=== PATIENT | female | born 1975 ===

== ENCOUNTER 2016-11-20 19:37 | Emergency (ER) | payer OTHER ==
[2016-11-20 19:47] VITALS: BMI 30.9
[2016-11-20 19:54] VITALS: RESP 18; TEMP 98.2
[2016-11-20] MEDS ORDERED: Promethazine/Cod 6.25mg-10mg/5ml Syr UD PO STA (20:21)
--- NOTE | 2016-11-20 20:38 | C.PDOC ---
History Of Present Illness 41 y/o female presents to the ED for evaluation of cough which began around 4 days ago. Patient began experiencing pleuritic chest pain today and presents to the ED for further evaluation. Patient took [id number] cough syrup without relief. She denies fever, chills, shortness of breath. Time Seen by Provider: 11/20/16 20:05 Chief Complaint (Nursing): Cough, Cold, Congestion History Per: Patient History/Exam Limitations: no limitations Onset/Duration Of Symptoms: Days Current Symptoms Are (Timing): Still Present Associated Symptoms: Cough. denies: Fever, Chills Ear Symptoms: Bilateral: None Additional History Per: Patient Past Medical History Reviewed: Historical Data, Nursing Documentation, Vital Signs Vital Signs: Last Vital Signs Temp 98.2 F 11/20/16 19:45 Pulse 65 11/20/16 20:44 Resp 18 11/20/16 20:44 BP 138/85 11/20/16 20:44 Pulse Ox 99 11/20/16 20:44 - Medical History PMH: No Chronic Diseases Surgical History: No Surg Hx Family History: States: Unknown Family Hx - Social History Hx Alcohol Use: No Hx Substance Use: No - Immunization History Hx Tetanus Toxoid Vaccination: Yes Hx Influenza Vaccination: Yes Hx Pneumococcal Vaccination: Yes Review Of Systems Constitutional: Negative for: Fever, Chills Cardiovascular: Positive for: Chest Pain (pleuritic ) Respiratory: Positive for: Cough. Negative for: Shortness of Breath Physical Exam - Physical Exam Appears: Non-toxic, No Acute Distress Skin: Normal Color, Warm, Dry Head: Atraumatic Eye(s): bilateral: Normal Inspection Ear(s): Bilateral: Normal Nose: Other (+congestion ) Oral Mucosa: Moist Neck: Normal ROM, Supple Chest: Symmetrical, No Deformity, No Tenderness Cardiovascular: Rhythm Regular, No Murmur Respiratory: Normal Breath Sounds, No Rales, No Rhonchi, No Wheezing Back: Normal Inspection, No Vertebral Tenderness, No Paraspinal Tenderness Extremity: Normal ROM, Capillary Refill (less than 2 seconds ) Neurological/Psych: Normal Speech, Normal Cognition Gait: Steady ED Course And Treatment O2 Sat by Pulse Oximetry: 100 (on RA) Pulse Ox Interpretation: Normal Progress Note: CXR ordered. CXR review shows increased lung markings, but is otherwise unremarkable with no signs of infiltrate. Patient received Motrin PO and Phenergan/Codeine PO. On reassessment, patient is resting comfortably, showing no signs of distress, and reports an improvement in her symptoms. Patient is stable for discharge and is advised to follow up with her PMD within 1-2 days for further evaluation. Disposition - Disposition Referrals: Clinic,Med Surg [Primary Care Provider] - Disposition: HOME/ ROUTINE Disposition Time: 20:34 Condition: STABLE Additional Instructions: Increase PO fluids ( Rachele liquido) No mucho leche Take meds as directed ( Rachele las medicinas) Regresa si peor Prescriptions: Amoxicillin 500 mg PO TID #21 tab Benzonatate [Tessalon Perles] 100 mg PO TID #20 sgl Cetirizine HCl [Zyrtec] 10 mg PO DAILY #20 capsule Ibuprofen [Motrin] 600 mg PO Q6H #30 tab Instructions: Upper Respiratory Infection (ED) Print Language: SWEDISH - Clinical Impression Clinical Impression: Upper respiratory infection - PA / GATE OPERATOR / Resident Statement MD/DO has reviewed & agrees with the documentation as recorded. - Scribe Statement The provider has reviewed the documentation as recorded by the Scribe (Yesy Kaufman) All medical record entries made by the Scribe were at my direction and personally dictated by me. I have reviewed the chart and agree that the record accurately reflects my personal performance of the history, physical exam, medical decision making, and the department course for this patient. I have also personally directed, reviewed, and agree with the discharge instructions and disposition.
[2016-11-20] MEDS ORDERED: Promethazine/Cod 6.25mg-10mg/5ml Syr UD ONE (20:43)
[2016-11-20 20:45] VITALS: BP 138/85; PULSE 65
[2016-11-20 21:42] VITALS: O2SAT 100
--- NOTE | 2016-11-21 10:32 | RAD ---
HISTORY: chest pain, cough COMPARISON: No prior. TECHNIQUE: Chest PA and lateral FINDINGS: LUNGS: Mild venous congestion. Right hilar prominence. PLEURA: No significant pleural effusion identified. No pneumothorax apparent. CARDIOVASCULAR: Normal. OSSEOUS STRUCTURES: No significant abnormalities. VISUALIZED UPPER ABDOMEN: Normal. OTHER FINDINGS: None. IMPRESSION: Mild venous congestion. Right hilar prominence.
== END 2016-11-20 20:46 | disposition home or self-care (01) ==
LOC: SUPCPDRO 19:37 → C.ER 19:37
DX: J06.9 Acute upper respiratory infection, unspecified (principal)